=== PATIENT | female | born 1965 | race Caucasian/White ===

== ENCOUNTER 2016-09-10 11:16 | Emergency (ER) | payer MEDICAID ==
[~2016-09-10] VITALS: Ht 162.6 cm; Wt 80.0 kg
[2016-09-10 21:53] VITALS: BP 123/66
== END 2016-09-10 21:55 | disposition home or self-care (01) ==
LOC: ER 11:53
DX: T82.42XA Displacement of vascular dialysis catheter, initial encounter (principal); Z88.0 Allergy status to penicillin; Z88.8 Allergy status to other drugs, medicaments and biological substances; Z88.1 Allergy status to other antibiotic agents; Y92.89 Other specified places as the place of occurrence of the external cause
CPT/HCPCS: 51702; 99284; Z7610; A4315

== ENCOUNTER 2016-09-10 22:02 | Emergency (ER) | payer MEDICAID ==
[~2016-09-10] VITALS: Ht 149.9 cm; Wt 88.0 kg
[2016-09-11 02:17] LABS: CHLORIDE 102 mEq/L (98-107)
[2016-09-11 02:21] LABS: LYMPHOCYTES % 19.3 % (20.0-50.0); MEAN PLATELET VOLUME 6.8 fl (7.4-10.4); RED CELL DISTRIBUTION WIDTH 16.3 % (11.6-14.6)
[2016-09-11 02:26] LABS: CARBON DIOXIDE 27 mEq/L (21-32)
[2016-09-11 02:38] LABS: EOSINOPHILS % 7.7 % (0.0-5.0); HEMATOCRIT. 29.9 % (36.0-48.0); HEMOGLOBIN. 10.1 g/dL (12.0-16.0); MEAN CORPUSCULAR HEMOGLOBIN 28.2 pg (28.0-32.0); MEAN CORPUSCULAR VOLUME 83.6 fL (81.0-99.0); MONOCYTES % 13.5 % (2.0-8.0); NEUTROPHILS % 58.5 % (40.0-76.0); PLATELET 365 x1000/uL (130-400); RED BLOOD CELL COUNT 3.58 mill/uL (4.2-5.4)
[2016-09-11 22:10] VITALS: BP 128/71
== END 2016-09-11 22:16 | disposition home or self-care (01) ==
LOC: ER 09-11
DX: R19.7 Diarrhea, unspecified (principal); M79.7 Fibromyalgia; Z88.0 Allergy status to penicillin; Z88.1 Allergy status to other antibiotic agents; Z88.6 Allergy status to analgesic agent; Z88.2 Allergy status to sulfonamides; Z91.040 Latex allergy status; Z90.49 Acquired absence of other specified parts of digestive tract
CPT/HCPCS: 36415; 51702; 80053; 85025; 87015; 87045; 87427; 87449; 87493; 89055; 99284